=== PATIENT | female | born 1985 | race Two or more races ===

== ENCOUNTER 2023-12-22 16:24 | Emergency (ER) | payer OTHER ==
[~2023-12-22] VITALS: Ht 175.3 cm; Wt 97.5 kg
[2023-12-22] MEDS ORDERED: CHILDREN'S ASPI81 MG PO (16:44)
[2023-12-22] MEDS ORDERED: ATORVASTATIN CA40 MG PO (16:44)
[2023-12-22] MEDS ORDERED: NITROGLYCERIN0.4 MG SL (16:45)
[2023-12-22 17:15] LABS: HEMATOCRIT 38.2 % (36.0-45.00); HEMOGLOBIN 12.9 g/dL (12.0-15.00); MEAN CELL VOLUME 94.9 fL (80.00-100.00); MEAN CORPUSCULAR HEMOGLOBIN 32.1 pg (27.00-32.0); MEAN CORPUSCULAR HGB CONC 33.9 g/dl (32.0-36.0); PLATELET COUNT 246 K/uL (150-450); RED BLOOD COUNT 4.02 M/uL (4.00-6.00)
[2023-12-22 17:33] LABS: CALCIUM 8.8 mg/dL (8.5-10.1); CREATININE SERUM 0.8 mg/dL (0.55-1.02); GFR 79.44; POTASSIUM 3.63 mEq/L (3.5-5.1)
== END 2023-12-22 22:14 | disposition home or self-care (01) ==
LOC: ER 16:25
PROVIDERS: Emergency Medicine
DX: R07.89 Other chest pain (principal); Z91.013 Allergy to seafood